=== PATIENT | male | born 1960 | race African-American/Black ===

== ENCOUNTER 2018-11-19 20:39 | Emergency (ER) | payer MEDICAID, OTHER ==
[~2018-11-19] VITALS: Ht 175.3 cm; Wt 83.9 kg
[2018-11-19 20:48] VITALS: BP 183/115
--- NOTE | 2018-11-19 20:52 | NUR ---
PT AT CHAIRSIDE. GIVEN BREATHING TREATMENT. IN RESPIRATORY DISTRESS WITH AUDILE, INSPIRATORY/EXPIRATORY WHEEZING. ALERT TO NAME, PLACE, TIME, EVENT. SPEECH LABORED WITH BREATHING. CONTINUE TO MONITOR.
--- NOTE | 2018-11-19 20:53 | NUR ---
PT TAKEN TO CHAIR B
[2018-11-19] MEDS ORDERED: ALBUTEROL SULFATE/IPRATROPIU 3 ML SOL IH ONE ×4 (20:55→22:30)
--- NOTE | 2018-11-19 21:09 | NUR ---
PT AMBULATED TO BED 10
--- NOTE | 2018-11-19 21:10 | NUR ---
PT STATES FEELING BETTER AFTER BREATHING TREATMENT. O2SAT 90% @ RA. SPEECH CLEAR AND UNLABORED. BILAT WHEEZING HEAR, INSPRIATORY AND EXPIRATORY. NON-PRODUCTIVE COUGH. PT STATES RELIEF. ER MD NOTIFIED. CONTINUE TO MONITOR.
[2018-11-19] MEDS ORDERED: DEXAMETHASONE 10 MG/ML VIAL IM ONE ×2 (21:25→21:55)
--- NOTE | 2018-11-19 21:41 | NUR ---
GOT ORDER FOR HHN AT 2126 BUT ORDER IS NOT COMING UP ON EMAR. RT ERIBERTO ALSO CHECKED AND NEW ORDER IS NOT SHOWING,, MD SCHUMACHER AWARE AND WILL PUT ANOTHER ORDER. HHN TX GIVEN TO PT NOW AND BEING CHARTED PT IS WHEEZING. WILL CONTINUE TO MONITOR.
--- NOTE | 2018-11-19 21:49 | NUR ---
SECOND BREATHING TREATMENT COMPLETED. 02SAT 96% AT RA. CONTINUE TO HEAR BILAT INSPIRATORY/EXPIRATORY WHEEZING UPPER LOBE WHEEZING. SPEECH CLEAR. PT STATES RELIEF. CONTINUE TO MONITOR.
[2018-11-19 23:05] VITALS: BP 148/94
--- NOTE | 2018-11-19 23:05 | NUR ---
Patient discharged with v/s stable. Written and verbal after care instructions given and explained. Patient alert, oriented and verbalized understanding of instructions. Ambulatory with steady gait. All questions addressed prior to discharge. ID band removed. Patient advised to follow up with PMD. Rx of MONTELUKAST AND PREDNISONE given. Patient educated on indication of medication including possible reaction and side effects. Opportunity to ask questions provided and answered.
== END 2018-11-19 23:05 | disposition home or self-care (01) ==
LOC: MED 20:39
DX: J45.901 Unspecified asthma with (acute) exacerbation (principal); I10 Essential (primary) hypertension; Z88.0 Allergy status to penicillin
CPT/HCPCS: 94640; 96372; 99285; J1100; J7620; 99284

== ENCOUNTER 2018-12-19 18:41 | Emergency (ER) | payer OTHER ==
[~2018-12-19] VITALS: Ht 175.3 cm; Wt 84.4 kg
[2018-12-19 19:11] VITALS: BP 159/93
--- NOTE | 2018-12-19 19:15 | NUR ---
PT AMBULATED TO BED 3
--- NOTE | 2018-12-19 19:26 | NUR ---
58 Y/O MALE ASTHMA EXACERBATION X1 DAY. USED ALBUTEROL INHALER APPROX 5-6X/DAY WITH NO RELIEF. INSPIRATORY AND EXPIRATORY WHEEZING THROUGHOUT BILATERALLY. PATIENT ALSO STATES THAT HE DOES NOT REACT WELL TO DECADRON. PATIENT IS AT 98% ; 19RR. EMRD TO SEE PATIENT. PATIENT PLACED HIGH FOWLERS. SIDE RAILS UPX1 PHM:ASTHMA ALLERGIES; PCN
[2018-12-19] MEDS ORDERED: ALBUTEROL SULFATE/IPRATROPIU 3 ML SOL IH ONE ×2 (19:40→20:30)
[2018-12-19] MEDS ORDERED: methylPREDNISolone SS 125 MG/2 ML VIAL IM ONE (19:40)
--- NOTE | 2018-12-19 20:32 | NUR ---
PT. IS IN NO APPARENT DISTRESS AND IS SITTING QUIETLY IN BED. SPO2 AT 98%, 15 RR, AND INSPIRATORY/EXPIRATORY WHEEZING HEARD BILATERALLY.
--- NOTE | 2018-12-19 21:00 | NUR ---
Patient discharged with v/s stable. Written and verbal after care instructions given and explained. Patient alert, oriented and verbalized understanding of instructions. Ambulatory with steady gait. All questions addressed prior to discharge. ID band removed. Patient advised to follow up with PMD. Rx of PREDNISONE 50MG, DULERA 200MCG-5MCG, AND ALBUTEROL 90MCG given. Patient educated on indication of medication including possible reaction and side effects. Opportunity to ask questions provided and answered.
[2018-12-19 21:02] VITALS: BP 125/83
== END 2018-12-19 21:02 | disposition home or self-care (01) ==
LOC: MED 18:41
DX: J45.901 Unspecified asthma with (acute) exacerbation (principal); Z88.0 Allergy status to penicillin
CPT/HCPCS: 94640; 96372; 99284; J2930; J7620

== ENCOUNTER 2018-12-28 19:01 | Emergency (ER) | payer OTHER ==
[~2018-12-28] VITALS: Ht 175.3 cm; Wt 85.3 kg
[2018-12-28 19:06] VITALS: BP 163/94
--- NOTE | 2018-12-28 19:23 | NUR ---
PT AMBULATED TO BED #2
[2018-12-28] MEDS ORDERED: methylPREDNISolone SS 125 MG/2 ML VIAL IM ONE (19:35)
[2018-12-28] MEDS ORDERED: ALBUTEROL SULFATE/IPRATROPIU 3 ML SOL IH ONE (19:35)
--- NOTE | 2018-12-28 19:35 | NUR ---
DR. NOWAK EVALUATING AT BEDSIDE.
--- NOTE | 2018-12-28 19:40 | NUR ---
58 YO M BIB SELF PRESENTS TO ED C/O SOB X 4 HOURS. PT REPORTS HX OF ASTHMA AND STATES "I TAKE MY INHALER AND STEROID TWICE A DAY BUT TODAY THEY JUST DIDN'T HELP". PT DENIES PAIN OR OTHER MEDICAL HX. -- PT AWAKE, A/O X 4. CALM, COOPERATIVE. ANSWERS QUESTIONS APPROPRIATELY. BEHAVIOR AGE APPROPRIATE. -- SKIN PINK, COOL, CLAMMY. INCREASED WOB NOTED. RESPIRATIONS LABORED AND DEEP. PT IN TRIPOD POSITIONING. INSPIRATORY AND EXPIRATORY WHEEZES AUSCULTATED THROUGHOUT LUNG QUINONEZ. PMH-- ASTHMA RX-- SYMBICORT, ALBUTEROL
--- NOTE | 2018-12-28 19:40 | NUR ---
SPO2 98% ON 4 LPM O2 VIA NC.
--- NOTE | 2018-12-28 19:46 | NUR ---
RUBY ON RAILS CONSULTANT AT BEDSIDE; BREATHING TX IN PROGRESS.
[2018-12-28] MEDS ORDERED: ALBUTEROL 0.083% 2.5 MG/3 ML NEBU INH ONE (20:05)
--- NOTE | 2018-12-28 20:05 | NUR ---
DR. NOWAK REEVALUATING AT BEDSIDE.
--- NOTE | 2018-12-28 20:47 | NUR ---
BREATHING TX IN PROGRESS; PT AWAKE, A/O X 4. SKIN PINK, WARM, DRY. VSS. NO COMPLAINTS AT THIS TIME.
--- NOTE | 2018-12-28 22:00 | NUR ---
REMOVED PT FROM 1HR CONT NEB. HR 91. SAT 99%. RR 18. NO RESP DISTRESS AT THIS TIME.
[2018-12-28 22:03] VITALS: BP 139/79
--- NOTE | 2018-12-28 22:03 | NUR ---
Patient discharged with v/s stable. Written and verbal after care instructions given and explained. Patient alert, oriented and verbalized understanding of instructions. Ambulatory with steady gait. All questions addressed prior to discharge. ID band removed. Patient advised to follow up with PMD. Rx of ALBUTEROL INH, PREDNISONE given. Patient educated on indication of medication including possible reaction and side effects. Opportunity to ask questions provided and answered.
== END 2018-12-28 22:03 | disposition home or self-care (01) ==
LOC: MED 19:01
DX: J45.901 Unspecified asthma with (acute) exacerbation (principal); Z88.0 Allergy status to penicillin
CPT/HCPCS: 71045; 94640; 94760; 96372; 99284; J2930; J7613; J7620; Q0092

== ENCOUNTER 2019-01-15 20:04 | Emergency (ER) | payer OTHER ==
[~2019-01-15] VITALS: Ht 175.3 cm; Wt 86.6 kg
[2019-01-15 20:22] VITALS: BP 158/106
--- NOTE | 2019-01-15 20:34 | NUR ---
PT AMBULATES TO BED 01 WITH STEADY GAIT.
[2019-01-15] MEDS ORDERED: IPRATROPIUM 0.02% 0.5 MG/2.5 ML NEBU INH ONE ×2 (20:35→20:40)
[2019-01-15] MEDS ORDERED: ALBUTEROL 0.083% 2.5 MG/3 ML NEBU INH ONE ×2 (20:35→20:40)
--- NOTE | 2019-01-15 20:35 | NUR ---
DR. KNOX MADE AWARE OF PT'S STATUS. CLASSIFIED ADVERTISING CLERK CALLED TO BEDSIDE FOR BREATHING TREATMENT.
--- NOTE | 2019-01-15 20:37 | NUR ---
DR. KNOX EVALUATING AT BEDSIDE.
[2019-01-15] MEDS ORDERED: methylPREDNISolone SS 125 MG/2 ML VIAL IVP ONE (20:40)
--- NOTE | 2019-01-15 20:42 | NUR ---
PT C/O ASTHMA EXACERBATION. DENIES CHEST PAIN. SOB. DEEP, LABORED BREATHING, O2 SAT 99% RA. PRODUCTIVE COUGH STARTED AT 1800 TODAY. AUDIBLE WHEEZING. FULL CLEAR SENTENCES. TOOK INHALER WITH NO RELIEF. MEDHX: ASTHMA ALLERGIES: PENICILLIN
--- NOTE | 2019-01-15 20:46 | NUR ---
RT AT BEDSIDE WITH TREATMENT
--- NOTE | 2019-01-15 20:53 | NUR ---
PT REFUSED IV, NOTIFIED. WILL CONTINUE WITH NEW ORDERS.
[2019-01-15] MEDS ORDERED: methylPREDNISolone SS 125 MG/2 ML VIAL IM ONE (20:55)
[2019-01-15 23:18] VITALS: BP 133/75
--- NOTE | 2019-01-15 23:18 | NUR ---
DPatient discharged with v/s stable. Written and verbal after care instructions given and explained. Patient alert, oriented and verbalized understanding of instructions. Ambulatory with steady gait. All questions addressed prior to discharge. ID band removed. Patient advised to follow up with PMD. Rx of PREDNISONE 20MG given. Patient educated on indication of medication including possible reaction and side effects. Opportunity to ask questions provided and answered.
== END 2019-01-15 23:18 | disposition home or self-care (01) ==
LOC: MED 20:04
DX: J45.902 Unspecified asthma with status asthmaticus (principal); Z88.0 Allergy status to penicillin
CPT/HCPCS: 94640; 96372; 99283; J2930; J7613; J7644

== ENCOUNTER 2019-01-28 10:13 | Emergency (ER) | payer OTHER ==
[~2019-01-28] VITALS: Ht 175.3 cm; Wt 86.2 kg
[2019-01-28 10:20] VITALS: BP 164/94
[2019-01-28] MEDS ORDERED: predniSONE 20 MG TAB PO ONE (10:25)
[2019-01-28] MEDS ORDERED: ALBUTEROL 0.083% 2.5 MG/3 ML NEBU INH ONE (10:25)
[2019-01-28] MEDS ORDERED: IPRATROPIUM 0.02% 0.5 MG/2.5 ML NEBU INH ONE (10:25)
[2019-01-28 12:08] VITALS: BP 144/69
== END 2019-01-28 12:07 | disposition home or self-care (01) ==
LOC: MED 10:13
DX: J45.909 Unspecified asthma, uncomplicated (principal); R03.0 Elevated blood-pressure reading, without diagnosis of hypertension; Z88.0 Allergy status to penicillin
CPT/HCPCS: 94640; 94760; 99283; J7512; J7613; J7644

== ENCOUNTER 2019-01-30 23:14 | Emergency (ER) | payer OTHER ==
[~2019-01-30] VITALS: Ht 175.3 cm; Wt 90.0 kg
[2019-01-30 23:28] VITALS: BP 166/107
--- NOTE | 2019-01-30 23:28 | NUR ---
PT TAKEN TO BED 06 VIA WC. RT CALLED TO BEDSIDE. DR. BAUTISTA MADE AWARE.
[2019-01-30] MEDS ORDERED: ALBUTEROL SULFATE/IPRATROPIU 3 ML SOL IH ONE ×3 (23:30→23:45)
--- NOTE | 2019-01-30 23:34 | NUR ---
RT AND MD AT BEDSIDE.
[2019-01-30] MEDS ORDERED: methylPREDNISolone SS 125 MG/2 ML VIAL IM ONE (23:50)
--- NOTE | 2019-01-30 23:50 | NUR ---
58 Y/O MALE C/O SOB; PT STATES HE WOKE UP FROM SLEEP WITH SEVERE SOB. PT HAS HX OF ASTHMA. AUDIBLE WHEEZING HEARD THROUGHOUT BILATERALLY ANTERIORALLY/POSTERIORALLY. RESPIRATORY DISTRESS NOTED; INCREASED WOB, ABDOMINAL BREATHING/GRUNTING. PT BROUGHT BACK TO BED VIA. DR. BAUTISTA MADE AWARE. PMH-- ASTHMA
[2019-01-31] MEDS ORDERED: ALBUTEROL 0.083% 2.5 MG/3 ML NEBU INH ONE (01:10)
--- NOTE | 2019-01-31 01:18 | NUR ---
RT AT BEDSIDE.
--- NOTE | 2019-01-31 02:39 | NUR ---
Patient discharged with v/s stable. Written and verbal after care instructions given and explained. Patient alert, oriented and verbalized understanding of instructions. Ambulatory with steady gait. All questions addressed prior to discharge. ID band removed. Patient advised to follow up with PMD. Rx of PREDNISONE 20MG given. Patient educated on indication of medication including possible reaction and side effects. Opportunity to ask questions provided and answered.
[2019-01-31 02:42] VITALS: BP 116/84
== END 2019-01-31 02:39 | disposition home or self-care (01) ==
LOC: MED 23:14
DX: R06.02 Shortness of breath (principal); R61 Generalized hyperhidrosis; J45.909 Unspecified asthma, uncomplicated; Z88.8 Allergy status to other drugs, medicaments and biological substances
CPT/HCPCS: 94640; 96372; 99283; J2930; J7613; J7620; 94644

== ENCOUNTER 2019-02-07 10:31 | Emergency (ER) | payer OTHER ==
[~2019-02-07] VITALS: Ht 175.3 cm; Wt 83.9 kg
--- NOTE | 2019-02-07 10:38 | NUR ---
PT TAKEN TO BED 7.
--- NOTE | 2019-02-07 10:39 | NUR ---
Notified Dr. Anton pt presents for asthma, wheezing noted throughout.
[2019-02-07 10:40] VITALS: BP_SYST 156; BP_SYST 160; BP_DIAS 114; BP_DIAS 89
--- NOTE | 2019-02-07 10:43 | NUR ---
Pt presented to the ER with hx of asthma presents for asthma attack 2 episodes in last 2 days. States SOB, wheezing, productive cough with clear sputum. Last used albuterol neb a "few hours ago" to no relief. PATIENT STATES PAIN OF 0/10 AT THIS TIME; VSS; PATIENT POSITIONED FOR COMFORT; HOB ELEVATED; BEDRAILS UP X1; BED DOWN. ER MD MADE AWARE OF PT STATUS.
[2019-02-07] MEDS ORDERED: ALBUTEROL SULFATE/IPRATROPIU 3 ML SOL IH ONE ×2 (10:50→11:40)
--- NOTE | 2019-02-07 10:51 | NUR ---
XRAY IS AT BEDSIDE.
--- NOTE | 2019-02-07 10:56 | NUR ---
DR. SCHUMACHER AT BEDSIDE EVALUATING PATIENT.
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
--- NOTE | 2019-02-07 11:01 | NUR ---
RT at bedside for breathing treatment.
[2019-02-07] MEDS ORDERED: methylPREDNISolone SS 125 MG/2 ML VIAL IM ONE (11:10)
--- NOTE | 2019-02-07 11:52 | NUR ---
FOLLOW UP HHN THERAPY AND RES[IRATORY DRUG GIVEN ORDERED ENCOURAGED PATIENT FOR INTERMITTENT DEEP BREATHING DURING THERAPY
--- NOTE | 2019-02-07 11:55 | NUR ---
RT at bedside for repeat breathing treatment.
--- NOTE | 2019-02-07 12:05 | NUR ---
SATURATION 100% ON SUPPLEMENTAL OXYGEN AT 2 LPM VIA NC POST HHN THERAPY TITRATED FIO2 TO ROOM AIR MYNOR/RN NOTIFIED
[2019-02-07 12:59] VITALS: BP 139/79
--- NOTE | 2019-02-07 12:59 | NUR ---
Patient discharged with v/s stable. Written and verbal after care instructions given and explained. Patient alert, oriented and verbalized understanding of instructions. Ambulatory with steady gait. All questions addressed prior to discharge. ID band removed. Patient advised to follow up with PMD. Rx of Prednisone, Atrovent 0.02% Solution Inhalation, Atrovent Inhalation Aerosol, and Dulera given. Patient educated on indication of medication including possible reaction and side effects. Opportunity to ask questions provided and answered.
== END 2019-02-07 12:59 | disposition home or self-care (01) ==
LOC: MED 10:31
DX: J45.901 Unspecified asthma with (acute) exacerbation (principal); Z88.0 Allergy status to penicillin
CPT/HCPCS: 71045; 94640; 96372; 99284; J2930; J7620; Q0092

== ENCOUNTER 2019-03-03 21:10 | Emergency (ER) | payer OTHER ==
[~2019-03-03] VITALS: Ht 175.3 cm; Wt 83.9 kg
--- NOTE | 2019-03-03 21:15 | NUR ---
PT TAKEN TO BED 10
[2019-03-03 21:19] VITALS: BP 161/101
[2019-03-03] MEDS ORDERED: ALBUTEROL 0.083% 2.5 MG/3 ML NEBU INH ONE (21:20)
--- NOTE | 2019-03-03 21:26 | NUR ---
Respiratory Therapist at bedside for respiratory intervention.
--- NOTE | 2019-03-03 21:39 | NUR ---
59 Y/O MALE PRESENTS TO ED, C/O SOB. PT STATES HAVING DIFFICULTY BREATHING AND HAS HX OF ASTHMA; USED INHALER BUT INEFFECTIVE. PT DENIES ANY CHEST PAIN. BREATHING IS LABORED, BILAT WHEEZING UPPER LOBES NOTED. ERMD AWARE. WILL CONTINUE TO MONITOR.
[2019-03-03] MEDS ORDERED: methylPREDNISolone SS 125 MG in WATER STERILE 2 ML IV ONE (21:50)
[2019-03-03] MEDS ORDERED: MAG SULF 2000 MG/WATER PREMIX 50 ML IV ONE (21:50)
[2019-03-03] MEDS ORDERED: ALBUTEROL SULFATE/IPRATROPIU 3 ML SOL IH ONE (23:10)
--- NOTE | 2019-03-03 23:13 | NUR ---
PT REFUSED IV INSERTION. UNABLE TO ADMINISTER MEDICATION. ERMD MADE AWARE.
[2019-03-04] MEDS ORDERED: ALBUTEROL SULFATE/IPRATROPIU 3 ML SOL IH ONE (00:15)
[2019-03-04] MEDS ORDERED: predniSONE 20 MG TAB PO ONE (00:40)
--- NOTE | 2019-03-04 00:57 | NUR ---
Dr. Paniagua examining patient.
[2019-03-04 00:58] VITALS: BP 141/88
--- NOTE | 2019-03-04 00:58 | NUR ---
PT DISCHARGED BY DR DURÁN PROVIDED WITH PAPERWORK. RX ALBUTEROL, PREDNISONE, ADVAIR DISKUS. EDUCATED PT REGARDING MEDICATIONS AND S/E. EDUCATED PT REGARDING D/C DIAGNOSIS AND INSTRUCTIONS. PT VERBALIZED UNDERSTANDING OF TEACHING. TOLD PT TO FOLLOW UP WITH PCP AND WHEN TO RETURN TO ED. PT VSS. DENIES SOB. ALL QUESTIONS ANSWERED.
== END 2019-03-04 00:58 | disposition home or self-care (01) ==
LOC: MED 21:10
DX: J45.901 Unspecified asthma with (acute) exacerbation (principal); Z88.0 Allergy status to penicillin
CPT/HCPCS: 71045; 94640; 96374; 99285; J2930; J3475; J7512; J7613; J7620; Q0092; 99284

== ENCOUNTER 2019-03-11 11:58 | Emergency (ER) | payer OTHER ==
[~2019-03-11] VITALS: Ht 170.2 cm; Wt 83.9 kg
[2019-03-11 12:01] VITALS: BP 186/105
[2019-03-11] MEDS: ALBUTEROL SULFATE/IPRATROPIU 3 ML SOL IH ONE (12:14)
[2019-03-11] MEDS: ALBUTEROL 0.083% 2.5 MG/3 ML NEBU INH ONE (12:25)
[2019-03-11] MEDS: MAG SULF 2000 MG/WATER PREMIX 50 ML IV ONE (12:25)
[2019-03-11] MEDS: methylPREDNISolone SS 125 MG/2 ML VIAL IVP ONE (12:27)
[2019-03-11 15:07] VITALS: BP 138/74
== END 2019-03-11 15:07 | disposition home or self-care (01) ==
LOC: MED 11:58
DX: J45.901 Unspecified asthma with (acute) exacerbation (principal); Z88.0 Allergy status to penicillin
CPT/HCPCS: 94640; 94644; 96365; 96375; 99285; J2930; J3475; J7613; J7620; 99284

== ENCOUNTER 2019-03-20 13:02 | Emergency (ER) | payer OTHER ==
[~2019-03-20] VITALS: Ht 175.3 cm; Wt 83.9 kg
[2019-03-20 13:06] VITALS: BP 164/99
[2019-03-20] MEDS: ALBUTEROL SULFATE/IPRATROPIU 3 ML SOL IH ONE ×2 (13:17→14:45)
[2019-03-20] MEDS: methylPREDNISolone SS 125 MG in WATER STERILE 2 ML IM ONE (13:36)
[2019-03-20 15:43] VITALS: BP 145/92
== END 2019-03-20 15:43 | disposition home or self-care (01) ==
LOC: MED 13:02
DX: J45.901 Unspecified asthma with (acute) exacerbation (principal); Z88.0 Allergy status to penicillin
CPT/HCPCS: 71045; 94640; 96372; 99284; J2930; J7620

== ENCOUNTER 2019-05-12 15:50 | Emergency (ER) | payer OTHER ==
[~2019-05-12] VITALS: Ht 175.3 cm; Wt 86.2 kg
[2019-05-12 16:07] VITALS: BP 150/82
[2019-05-12] MEDS ORDERED: ALBUTEROL SULFATE/IPRATROPIU 3 ML SOL IH ONE (16:10)
--- NOTE | 2019-05-12 16:17 | NUR ---
PT AMBULATED TO ER BED 06
--- NOTE | 2019-05-12 16:17 | NUR ---
RT at bedside for breathing tx
[2019-05-12] MEDS ORDERED: ALBUTEROL 0.083% 2.5 MG/3 ML NEBU INH ONE (16:20)
--- NOTE | 2019-05-12 16:22 | NUR ---
PATIENT PRESENTS TO ED WITH c/o SOB WITH WHEEZING TODAY, HX OF ASTHMA. DENIES PAIN, VSS; PATIENT POSITIONED FOR COMFORT; HOB ELEVATED; BEDRAILS UP X2; BED DOWN. ER MD MADE AWARE OF PT STATUS.
--- NOTE | 2019-05-12 16:24 | NUR ---
X-RAY AT BEDSIDE
[2019-05-12] MEDS ORDERED: methylPREDNISolone SS 125 MG in WATER STERILE 2 ML IM ONE (16:25)
[2019-05-12] MEDS ORDERED: WATER STERILE 10 ML MC ONE (16:46)
[2019-05-12] MEDS ORDERED: methylPREDNISolone SS 125 MG/2 ML VIAL ONE (16:46)
[2019-05-12 17:02] VITALS: BP 150/82
--- NOTE | 2019-05-12 17:03 | NUR ---
Patient discharged with v/s stable. Written and verbal after care instructions given and explained. Patient alert, oriented and verbalized understanding of instructions. Ambulatory with steady gait. All questions addressed prior to discharge. ID band removed. Patient advised to follow up with PMD. Rx of PROAIR, PREDNISONE, PROMETHAZINE given. Patient educated on indication of medication including possible reaction and side effects. Opportunity to ask questions provided and answered.
== END 2019-05-12 17:03 | disposition home or self-care (01) ==
LOC: MED 15:50
DX: J45.901 Unspecified asthma with (acute) exacerbation (principal); Z88.0 Allergy status to penicillin
CPT/HCPCS: 71045; 94640; 96372; 99283; J2930; J7613; J7620; Q0092

== ENCOUNTER 2019-06-04 23:05 | Emergency (ER) | payer OTHER ==
[~2019-06-04] VITALS: Ht 175.3 cm; Wt 83.9 kg
[2019-06-04] MEDS ORDERED: ALBUTEROL SULFATE/IPRATROPIU 3 ML SOL IH ONE (23:10)
[2019-06-04] MEDS ORDERED: ALBUTEROL 0.083% 2.5 MG/3 ML NEBU INH ONE (23:10)
[2019-06-04] MEDS ORDERED: predniSONE 20 MG TAB PO ONE (23:10)
[2019-06-04 23:15] VITALS: BP 153/96
--- NOTE | 2019-06-04 23:17 | NUR ---
PT TAKEN TO BED 7
--- NOTE | 2019-06-04 23:25 | NUR ---
59 YEAR OLD MALE COMPLAINS OF SHORTNESS OF BREATHE X 2 DAYS. PATIENT LUNGS WHEEZING BILATERALLY. PATIENT IS PLACED ON BREATHING TREATMENT WITH RESPIRATORY AT BEDSIDE. SPO2 100%, RR 16. PATIENT LABORED BREATHING WITH EQUAL RISE AND FALL OF CHEST. AOX4, SKIN WARM AND DRY. BED IN LOWEST POSITION, LOCKED, BED RAIL UPX1. ERMD AWARE OF STATUS.
--- NOTE | 2019-06-04 23:25 | NUR ---
Respiratory Therapist at bedside for respiratory intervention.
[2019-06-04] MEDS ORDERED: methylPREDNISolone SS 125 MG in WATER STERILE 2 ML IM ONE (23:30)
[2019-06-04] MEDS ORDERED: WATER STERILE 10 ML MC ONE (23:32)
[2019-06-04] MEDS ORDERED: methylPREDNISolone SS 125 MG/2 ML VIAL ONE (23:33)
--- NOTE | 2019-06-04 23:42 | NUR ---
Dr. Le examining patient.
--- NOTE | 2019-06-04 23:53 | NUR ---
PT STATES FEELING BETTER AFTER BREATHING TX. PT STILL HAVING SLIGHT EXPIROTORY WHEEZING. PT 99% ON RA. PT STATES READY TO LEAVE. Patient discharged with v/s stable. Written and verbal after care instructions given and explained. Patient alert, oriented and verbalized understanding of instructions. Ambulatory with steady gait. All questions addressed prior to discharge. ID band removed. Patient advised to follow up with PMD. Rx of PREDSONE AND ALBUTEROL given. Patient educated on indication of medication including possible reaction and side effects. Opportunity to ask questions provided and answered.
[2019-06-04 23:56] VITALS: BP 153/96
== END 2019-06-04 23:53 | disposition home or self-care (01) ==
LOC: MED 23:05
DX: J45.901 Unspecified asthma with (acute) exacerbation (principal); Z88.0 Allergy status to penicillin
CPT/HCPCS: 94640; 96372; 99283; J2930; J7512; J7613; J7620

== ENCOUNTER 2019-06-22 17:18 | Emergency (ER) | payer OTHER ==
[~2019-06-22] VITALS: Ht 175.3 cm; Wt 85.7 kg
[2019-06-22 17:44] VITALS: BP 149/96
--- NOTE | 2019-06-22 17:50 | NUR ---
ERMD AT BEDSIDE
[2019-06-22] MEDS ORDERED: ALBUTEROL 0.083% 2.5 MG/3 ML NEBU INH ONE (17:55)
[2019-06-22] MEDS ORDERED: predniSONE 20 MG TAB PO ONE (17:55)
[2019-06-22] MEDS ORDERED: IPRATROPIUM 0.02% 0.5 MG/2.5 ML NEBU INH ONE (17:55)
--- NOTE | 2019-06-22 18:00 | NUR ---
C/O SOB X 3 DAYS. PT STATES HE HAS USED HIS AT HOME NEBULIZER AND RESCUE INHALER AT HOME WITH NO RELIEF. AUDIBLE WHEEZING HEARD THROUGHOUT ON INSPIRATION & EXPIRATION, BREATHING IN LABORED/DEEP, & TACHYPNEIC. SKIN IS CLAMMY. PT IS TRIPODING AND REMAINS IN UPRIGHT POSITON. PT DENIES CHEST PAIN AT THIS TIME. BED IN LOW POSITION, SIDE RAIL UP X1. RT AT BEDSIDE ADMINISTERING BREATHING TX.
[2019-06-22] MEDS ORDERED: methylPREDNISolone AC 80 MG/ML VIAL IM ONE (18:05)
[2019-06-22] MEDS ORDERED: methylPREDNISolone SS 125 MG/2 ML VIAL ONE ×2 (18:17→18:27)
[2019-06-22] MEDS ORDERED: methylPREDNISolone SS 40 MG/ML VIAL ONE ×2 (18:18→18:27)
--- NOTE | 2019-06-22 19:13 | NUR ---
RECEIVED REPORT FROM YANNA HIGGINBOTHAM
[2019-06-22 19:43] VITALS: BP 149/96
--- NOTE | 2019-06-22 19:44 | NUR ---
Patient discharged with v/s stable. Written and verbal after care instructions given and explained. Patient alert, oriented and verbalized understanding of instructions. Ambulatory with steady gait. All questions addressed prior to discharge. ID band removed. Patient advised to follow up with PMD. Rx of ALBUTEROL, PREDNISONE given. Patient educated on indication of medication including possible reaction and side effects. Opportunity to ask questions provided and answered.
== END 2019-06-22 19:44 | disposition home or self-care (01) ==
LOC: MED 17:18
DX: J45.901 Unspecified asthma with (acute) exacerbation (principal); Z88.0 Allergy status to penicillin
CPT/HCPCS: 94640; 96372; 99283; J2930; J7613; J7644; J1040; J2920

== ENCOUNTER 2019-06-25 12:25 | Emergency (ER) | payer OTHER ==
[~2019-06-25] VITALS: Ht 175.3 cm; Wt 129.3 kg
[2019-06-25 13:12] VITALS: BP 141/78
--- NOTE | 2019-06-25 13:32 | NUR ---
AMB TO BED 04 STEADY GAIT
--- NOTE | 2019-06-25 13:33 | NUR ---
C/O PERSISTANT COLD SYMPTOMS, SOB WITH ASTHMA EXACERBATION >1 WK SEEN IN OUR ER MAY 12JUN 04 FOR SAME COMPLAINT LAST USED ALBUTEROL APPROXIMATELY 11AM OR 12PM TODAY. 99% RA, HR 94 COUGH IS SOMETIMES DRY AND SOMETIMES PRODUCTIVE EXPIRATORY WHEEZING THROUGHOUT 0/10 PAIN HX--ASTHMA RX--ALBUTEROL LAWANDA BARNEY
--- NOTE | 2019-06-25 13:46 | NUR ---
DR MULLEN EVALUATING PT @ BEDSIDE
--- NOTE | 2019-06-25 13:52 | NUR ---
CALLED RT FOR BREATHING TREATMENT IN BED 04
[2019-06-25] MEDS: predniSONE 20 MG TAB PO ONE (14:03)
[2019-06-25] MEDS: ALBUTEROL 0.083% 2.5 MG/3 ML NEBU INH ONE (14:04)
[2019-06-25] MEDS: IPRATROPIUM 0.02% 0.5 MG/2.5 ML NEBU INH ONE (14:04)
--- NOTE | 2019-06-25 14:30 | NUR ---
DR MULLEN RE-EVALUATING PT @ BEDSIDE
[2019-06-25 14:35] VITALS: BP 135/76
--- NOTE | 2019-06-25 14:43 | NUR ---
Patient discharged with v/s stable. Written and verbal after care instructions given and explained. Patient alert, oriented and verbalized understanding of instructions. Ambulatory with steady gait. All questions addressed prior to discharge. ID band removed. Patient advised to follow up with PMD. Rx of PROMETHZINE,PREDNISONE given. Patient educated on indication of medication including possible reaction and side effects. Opportunity to ask questions provided and answered.
== END 2019-06-25 14:43 | disposition home or self-care (01) ==
LOC: MED 12:25
DX: J45.901 Unspecified asthma with (acute) exacerbation (principal); R03.0 Elevated blood-pressure reading, without diagnosis of hypertension; Z88.0 Allergy status to penicillin
CPT/HCPCS: 94640; 99283; J7512; J7613; J7644

== ENCOUNTER 2019-09-19 16:58 | Emergency (ER) | payer OTHER ==
[~2019-09-19] VITALS: Ht 175.3 cm; Wt 83.9 kg
[2019-09-19 17:00] VITALS: BP 159/80
[2019-09-19] MEDS ORDERED: predniSONE 20 MG TAB PO ONE (17:10)
[2019-09-19] MEDS ORDERED: ALBUTEROL SULFATE/IPRATROPIU 3 ML SOL IH ONE (17:10)
[2019-09-19] MEDS ORDERED: ALBUTEROL 0.083% 2.5 MG/3 ML NEBU INH ONE (17:10)
[2019-09-19] MEDS ORDERED: methylPREDNISolone SS 125 MG in WATER STERILE 2 ML IM ONE (18:05)
[2019-09-19] MEDS ORDERED: methylPREDNISolone SS 125 MG/2 ML VIAL ONE (18:09)
[2019-09-19] MEDS ORDERED: WATER STERILE 10 ML MC ONE (18:09)
[2019-09-19 18:16] VITALS: BP 141/78
== END 2019-09-19 18:17 | disposition home or self-care (01) ==
LOC: MED 16:58
DX: J45.909 Unspecified asthma, uncomplicated (principal); Z88.0 Allergy status to penicillin
CPT/HCPCS: 96374; 99283; J2930; J7512

== ENCOUNTER 2019-11-20 09:11 | Emergency (ER) | payer OTHER ==
[~2019-11-20] VITALS: Ht 152.4 cm; Wt 88.5 kg
[2019-11-20 09:17] VITALS: BP 157/91
[2019-11-20] MEDS ORDERED: ALBUTEROL SULFATE/IPRATROPIU 3 ML SOL IH ONE (09:20)
[2019-11-20] MEDS ORDERED: DEXAMETHASONE 10 MG/ML VIAL IM ONE (10:05)
[2019-11-20 10:33] VITALS: BP 157/91
== END 2019-11-20 10:33 | disposition home or self-care (01) ==
LOC: MED 09:11
DX: J45.901 Unspecified asthma with (acute) exacerbation (principal); Z88.0 Allergy status to penicillin
CPT/HCPCS: 71045; 94640; 96372; 99283; J1100; Q0092

== ENCOUNTER 2019-12-11 08:38 | Emergency (ER) | payer OTHER ==
[~2019-12-11] VITALS: Ht 175.3 cm; Wt 86.2 kg
[2019-12-11 08:43] VITALS: BP 150/87
--- NOTE | 2019-12-11 08:47 | NUR ---
PT AMBULATED TO ER BED 07
[2019-12-11] MEDS ORDERED: ALBUTEROL SULFATE/IPRATROPIU 3 ML SOL IH ONE ×2 (08:50→08:55)
--- NOTE | 2019-12-11 08:53 | NUR ---
59 Y/O MALE BIB SELF C/O SOB THAT HAS BEEN GOING ON FOR THE PAST FEW DAYS BUT HAS GOTTEN WORSE THIS MORNING. RESP ARE EVEN AND LABORED. AUDIBLE WHEEZING HEARD DURING INSPIRATORY AND EXPIRATORY PHASES. PT IS SLIGHTLY DIAPHORETIC. DENIES ANY FLU-LIKE SYMPTOMS, FEVER, CHILLS. NO DISTRESS NOTED AT THIS TIME. VSS. RT AT BEDSIDE PROVIDING BREATHING TREATMENT. PMH: ASTHMA ALLERGIES: PENICILLINS
[2019-12-11] MEDS ORDERED: MAG SULF 2000 MG/WATER PREMIX 50 ML IV ONE (08:55)
[2019-12-11] MEDS ORDERED: NACL 0.9% 500 ML IV ONE (08:55)
[2019-12-11] MEDS ORDERED: methylPREDNISolone SS 125 MG/2 ML VIAL IVP ONE (08:55)
--- NOTE | 2019-12-11 09:50 | NUR ---
PT STATES HE IS FEELING 90% BETTER, LUNG SOUNDS ARE SLIGHTLY WHEEZING IN BILAT BASES. SP02 100% RA.
[2019-12-11 09:58] VITALS: BP 150/87
--- NOTE | 2019-12-11 09:59 | NUR ---
Patient discharged with v/s stable. Written and verbal after care instructions given and explained. Patient alert, oriented and verbalized understanding of instructions. Ambulatory with steady gait. All questions addressed prior to discharge. ID band removed. Patient advised to follow up with PMD. Rx of PREDNISONE, ALBUTEROL given. Patient educated on indication of medication including possible reaction and side effects. Opportunity to ask questions provided and answered.
--- NOTE | 2019-12-13 08:34 | NUR ---
LATE ENTRY- NORMAL SALINE 0.9% DISCONTINUED AT 0959.
== END 2019-12-11 09:59 | disposition home or self-care (01) ==
LOC: MED 08:38
DX: J45.901 Unspecified asthma with (acute) exacerbation (principal); R03.0 Elevated blood-pressure reading, without diagnosis of hypertension; Z88.0 Allergy status to penicillin
CPT/HCPCS: 71045; 94640; 96365; 96375; 99284; J2930; J3475; J7030; Q0092; 99283

== ENCOUNTER 2020-02-27 10:28 | Emergency (ER) | payer OTHER ==
[~2020-02-27] VITALS: Ht 170.2 cm; Wt 84.8 kg
[2020-02-27 10:37] VITALS: BP 187/92
[2020-02-27] MEDS ORDERED: ALBUTEROL 0.083% 2.5 MG/3 ML NEBU INH ONE (10:40)
[2020-02-27] MEDS ORDERED: ALBUTEROL SULFATE/IPRATROPIU 3 ML SOL IH ONE (10:40)
[2020-02-27] MEDS: predniSONE 20 MG TAB PO ONE (11:01)
[2020-02-27 12:09] VITALS: BP 187/92
== END 2020-02-27 12:09 | disposition home or self-care (01) ==
LOC: MED 10:28
DX: J45.909 Unspecified asthma, uncomplicated (principal); Z88.0 Allergy status to penicillin
CPT/HCPCS: 99283; J7512; J7613